=== PATIENT | male | born 1945 | race Caucasian/White ===

== ENCOUNTER 2016-12-31 20:22 | Emergency (ER) | payer MEDICARE ==
[~2016-12-31] VITALS: Ht 180.3 cm; Wt 92.2 kg
[~2016-12-31 20:22] MED LIST: CARV6.25 PO; DIGO250T PO; FURO-153 PO; LISI5TAB PO; SPIR25TA PO; WARF5TAB6 PO
--- OUTSIDE RECORDS SUMMARY | 2016-12-31 20:25 | XMS REPORT | Referral Summary ---
Author Author [facility], Family [facility] Organization [facility] Address Unknown Phone Unavailable Care Team Providers Care Information Systems Supervisor Name Role Phone Mohsen Humphreys Primary Care Physician [phone] Encounter VC Date(s): 07/11/16 - 07/11/16 [facility], [address] [place] [address]- Discharge Diagnosis: Acute CHF (congestive heart failure) Discharge Diagnosis: Atrial thrombus Discharge Diagnosis: Cardiomyopathy Discharge Diagnosis: Atrial fibrillation Discharge Diagnosis: Cardiomegaly Discharge Disposition: -Home or Self Care Attending Physician: Loki Humphreys MD Admitting Physician: Loki Humphreys MD Vital Signs Most recent to 1 oldest [Reference Range]: Temperature Oral 36.5 degC [35.8-37.3 degC] (07/11/16 3:18 PM) Peripheral Pulse 96 bpm Rate [60-100 bpm] (07/11/16 3:18 PM) Blood Pressure 140/100 mmHg [90-140/60-90 mmHg] (07/11/16 3:18 PM) SpO2 95 % (07/11/16 3:18 PM) Problem List Condition Effective Dates Status Health Status Informant Acute CHF Active (congestive heart failure)(Confirmed) Atrial Active fibrillation(Confirm ed) Cardiomegaly(Confirm Active ed) Cardiomyopathy(Confi Active rmed) Diabetes(Confirmed) Active Acute pain of left Active shoulder(Confirmed) Tobacco Active patient user(Confirmed) Allergies, Adverse Reactions, Alerts No Known Medication Allergies Medications Amaryl 2 mg oral tablet See Instructions, 1 TABS ORAL DAILY, # 30 tabs, 5 Refill(s), eRx: [facility] [id number], 1 TABS ORAL DAILY Start Date: 02/01/15 Status: Ordered carvedilol 12.5 mg oral tablet 1 tabs, Oral, BID, # 60 tabs, 0 Refill(s) Start Date: 01/06/15 Status: Ordered digoxin 250 mcg (0.25 mg) oral tablet See Instructions, TAKE 1 TABLET BY MOUTH EVERY DAY, # 30 tabs, 2 Refill(s), eRx : [facility] [facility] , TAKE 1 TABLET BY MOUTH EVERY DAY Start Date: 02/03/15 Status: Ordered Freestyle [place] Lite Lancets Freestyle [place] Lite Lancets, See Instructions, Use to test blood sugar BID DX 250.00, # 100 Each, 0 Refill(s), [email or web address], Use to test blood sugar BID; DX 250.00 Start Date: 01/06/15 Status: Ordered Freestyle [place] Lite Test Strips Freestyle [place] Lite Test Strips, See Instructions, Use to test blood sugar BID DX 250.00, # 100 Each, 11 Refill(s), [email or web address], Use to test blood sugar BID; DX 250.00 Start Date: 01/06/15 Status: Ordered furosemide 40 mg oral tablet See Instructions, TAKE 1 TABLET BY MOUTH EVERY DAY, # 30 tabs, 5 Refill(s), eRx : [facility] , TAKE 1 TABLET BY MOUTH EVERY DAY Start Date: 02/01/15 Status: Ordered lisinopril 5 mg oral tablet See Instructions, TAKE 1 TABLET BY MOUTH EVERY NIGHT AT BEDTIME, # 30 tabs, 2 Refill(s), eRx: [facility] , TAKE 1 TABLET BY MOUTH EVERY NIGHT AT BEDTIME Start Date: 02/03/15 Status: Ordered Mobic 7.5 mg oral tablet 1 tabs, Oral, BID, # 60 tabs, 0 Refill(s), [id number] , 1 tabs Oral BID Start Date: 01/25/15 Status: Ordered spironolactone 25 mg oral tablet See Instructions, TAKE 1 TABLET BY MOUTH EVERY DAY, # 30 tabs, 1 Refill(s), eRx : [facility] [id number], TAKE 1 TABLET BY MOUTH EVERY DAY Start Date: 05/25/15 Status: Ordered warfarin 5 mg oral tablet See Instructions, TAKE 1 TABLET BY MOUTH EVERY DAY WITH SUPPER, # 30 tabs, 2 Refill(s), eRx: [facility] [id number], TAKE 1 TABLET BY MOUTH EVERY DAY WITH SUPPER Start Date: 02/03/15 Status: Ordered Results No data available for this section Immunizations No data available for this section Procedures No data available for this section Social History Social History Type Response Smoking Status Former smoker; Type: Chewing Tobacco Assessment and Plan No data available for this section
--- OUTSIDE RECORDS SUMMARY | 2016-12-31 20:25 | XMS REPORT | Referral Summary ---
Author Author [facility], Family Medicine Organization [facility], Family [facility] Address Unknown Phone Unavailable Care Team Providers Care Expense Clerk Name Role Phone Mohsen Humphreys Primary Care Physician [phone] Encounter VC Date(s): 07/21/16 - 07/21/16 [facility], Family [address] [place] [address]- Discharge Disposition: 01-Home or Self Care Attending Physician: Loki Humphreys MD Admitting Physician: Loki Humphreys MD Vital Signs Most recent to 1 oldest [Reference Range]: Blood Pressure 126/74 mmHg [90-140/60-90 mmHg] (07/21/16 9:48 AM) Problem List Condition Effective Dates Status Health Status Informant Acute CHF Active (congestive heart failure)(Confirmed) Atrial Active fibrillation(Confirm ed) Cardiomegaly(Confirm Active ed) Cardiomyopathy(Confi Active rmed) Diabetes(Confirmed) Active Acute pain of left Active shoulder(Confirmed) Tobacco Active patient user(Confirmed) Allergies, Adverse Reactions, Alerts No Known Medication Allergies Medications digoxin 250 mcg (0.25 mg) oral tablet See Instructions, TAKE 1 TABLET BY MOUTH EVERY DAY, # 30 tabs, 2 Refill(s), eRx : [facility] , TAKE 1 TABLET BY MOUTH EVERY DAY Start Date: 02/03/15 Status: Ordered furosemide 40 mg oral tablet See Instructions, TAKE 1 TABLET BY MOUTH EVERY DAY, # 30 tabs, 5 Refill(s), eRx : [facility] , TAKE 1 TABLET BY MOUTH EVERY DAY Start Date: 02/01/15 Status: Ordered lisinopril 5 mg oral tablet See Instructions, TAKE 1/2 TABLET BY MOUTH EVERY NIGHT AT BEDTIME, # 30 tabs, 2 Refill(s), eRx: [facility] [id number], TAKE 1 TABLET BY MOUTH EVERY NIGHT AT BEDTIME Start Date: 02/03/15 Status: Ordered metFORMIN 500 mg oral tablet 500 mg 1 tabs, Oral, BID, # 60 tabs, 2 Refill(s), Pharmacy: [facility] [id number], 1 tabs Oral BID Start Date: 07/21/16 Status: Ordered One Touch Vario Glucometer Test Strips One Touch Vario Glucometer Test Strips, See Instructions, Use to test blood sugar fasting and 2 hours postprandial of one meal daily. DX: E11.65, # 100 Each, 2 Refill(s), Pharmacy: [facility] [id number], Use to test blood sugar fasting and 2 ho... Start Date: 07/21/16 Status: Ordered One Touch Vario Lancets One Touch Vario Lancets, See Instructions, Use to test blood sugars fasting and 2 hours post prandial of one meal each day. DX: E11.65, # 100 Each, 2 Refill(s ), Pharmacy: [facility] [id number], Use to test blood sugars fasting and 2 hours post... Start Date: 07/21/16 Status: Ordered spironolactone 25 mg oral tablet See Instructions, TAKE 1 TABLET BY MOUTH EVERY DAY, # 30 tabs, 1 Refill(s), eRx : [facility] [id number], TAKE 1 TABLET BY MOUTH EVERY DAY Start Date: 05/25/15 Status: Ordered warfarin 5 mg oral tablet See Instructions, TAKE 1 TABLET BY MOUTH EVERY DAY WITH SUPPER, # 30 tabs, 2 Refill(s), eRx: [facility] [id number], TAKE 1 TABLET BY MOUTH EVERY DAY WITH SUPPER Start Date: 02/03/15 Status: Ordered Results Coagulation Most recent to 1 oldest [Reference Range]: PT Venous (07/21/16 10:55 AM) INR [0.8-1.2] 1.4 1 *HI* (07/21/16 10:55 AM) 1Result Comment: Normal (no anticoagulant): 0.8 - 1.2 Units Routine Therapeutic Range: 2.0 - 3.0 Units High Risk Therapeutic Range: 2.5 - 3.5 Units Immunizations No data available for this section Procedures No data available for this section Social History Social History Type Response Smoking Status Current every day smoker; Type: Chewing Tobacco1 1Chews 2-3 dips a day. Moderate sized dips. Assessment and Plan No data available for this section
--- OUTSIDE RECORDS SUMMARY | 2016-12-31 20:25 | XMS REPORT | Continuity of Care Document ---
Author Author [facility] Organization [facility] Address Unknown Phone Unavailable Allergies Active Description Code Type Severity Reaction Onset Reported/Identified Relationship to Patient Clinical Status Yes No Known Medication Allergies NKMA N/A N/A 01/06/2015 Medications Problems Procedures Results Test Result Range Protime (INR) - 07/21/16 10:55 INR 1.4 NA 0.8-1.2 Prothrombin Time Venous seconds Encounters ACCT No. Visit Date/Time Discharge Status Pt. Type Provider Facility Loc./Unit Complaint [id number] 10/10/2016 15:32:00 2016 23:59:00 DIS Outpatient Loki Humphreys [facility] [id number] 07/21/2016 09:36:00 2015 23:59:00 DIS Outpatient Loki Humphreys [facility] hair folicle check, diabetes check [id number] 07/17/2016 08:39:00 2015 23:59:00 DIS Outpatient Loki Humphreys [facility] Go over meds [id number] 07/11/2016 15:15:00 2015 23:59:00 DIS Outpatient Loki Humphreys [facility] TCPA MED CHECK [id number] 06/14/2015 14:10:00 Document Registration
--- OUTSIDE RECORDS SUMMARY | 2016-12-31 20:25 | XMS REPORT | Referral Summary ---
Author Author [facility], Family Medicine Organization [facility] Address Unknown Phone Unavailable Care Team Providers Care Senior Ruby Developer Name Role Phone Mohsen Humphreys Primary Care Physician [phone] Encounter Date(s): 07/17/16 - 07/17/16 [facility], [address] [place] [address]- Discharge Diagnosis: Cardiomegaly Discharge Diagnosis: Cardiomyopathy Discharge Diagnosis: Acute CHF (congestive heart failure) Discharge Diagnosis: Diabetes Discharge Disposition: 01-Home or Self Care Attending Physician: Loki Humphreys MD Admitting Physician: Loki Humphreys MD Vital Signs Most recent to 1 oldest [Reference Range]: Peripheral Pulse 56 bpm Rate [60-100 bpm] *LOW* (07/17/16 9:00 AM) Blood Pressure 126/80 mmHg [90-140/60-90 mmHg] (07/17/16 9:00 AM) SpO2 93 % (07/17/16 9:00 AM) Problem List Condition Effective Dates Status [...] DAILY, # 30 tabs, 5 Refill(s), eRx: [facility] [id number], 1 TABS ORAL DAILY Start Date: 02/01/15 Status: Ordered carvedilol 12.5 mg oral tablet 1 tabs, Oral, BID, # 60 tabs, 0 Refill(s) Start Date: 01/06/15 Status: Ordered digoxin 250 mcg (0.25 mg) oral tablet See Instructions, TAKE 1 TABLET BY MOUTH EVERY DAY, # 30 tabs, 2 Refill(s), eRx : [facility] , TAKE 1 TABLET BY MOUTH EVERY DAY Start Date: 02/03/15 Status: Ordered Freestyle Cement Lite Lancets Freestyle Cement Lite Lancets, See Instructions, Use to test blood sugar BID DX 250.00, # 100 Each, 0 Refill(s), Pharmacy: [facility], Use to test blood sugar BID; DX 250.00 Start Date: 01/06/15 Status: Ordered Freestyle Cement Lite Test Strips Freestyle Cement Lite Test Strips, See Instructions, Use to test blood sugar BID DX 250.00, # 100 Each, 11 Refill(s), Pharmacy: [facility], Use to test blood sugar BID; DX 250.00 Start Date: 01/06/15 Status: Ordered furosemide 40 mg oral tablet See Instructions, TAKE 1 TABLET BY MOUTH EVERY DAY, # 30 tabs, 5 Refill(s), eRx : [facility] [id number], TAKE 1 TABLET BY MOUTH EVERY DAY Start Date: 02/01/15 Status: Ordered lisinopril 5 mg oral tablet See Instructions, TAKE 1 TABLET BY MOUTH EVERY NIGHT AT BEDTIME, # 30 tabs, 2 Refill(s), eRx: [facility] , TAKE 1 TABLET BY MOUTH EVERY NIGHT AT BEDTIME Start Date: 02/03/15 Status: Ordered Mobic 7.5 mg oral tablet 1 tabs, Oral, BID, # 60 tabs, 0 Refill(s), Pharmacy: [facility] [id number] , 1 tabs Oral BID Start Date: 01/25/15 Status: Ordered spironolactone 25 mg oral tablet See Instructions, TAKE 1 TABLET BY MOUTH EVERY DAY, # 30 tabs, 1 Refill(s), eRx : [facility] , TAKE 1 TABLET BY MOUTH EVERY DAY Start Date: 05/25/15 Status: Ordered warfarin 5 mg oral tablet See Instructions, TAKE 1 TABLET BY MOUTH EVERY DAY WITH SUPPER, # 30 tabs, 2 Refill(s), eRx: [facility] , TAKE 1 TABLET BY MOUTH EVERY DAY WITH SUPPER Start Date: 02/03/15 Status: Ordered Results No data available for this section Immunizations No data available for this section Procedures No data available for this section Social History Social History Type Response Smoking Status Current every day smoker; Type: Chewing Tobacco1 1Chews 2-3 dips a day. Moderate sized dips. Assessment and Plan Extracted from: Title: Ambulatory Patient Education Author: Loki Humphreys MD Date: Cardiovascular Cardiomyopathy Cardiomyopathy is a long-term (chronic) disease of the heart muscle (myocardium) . Over time, the heart becomes abnormally large, thick, or stiff. This makes it harder for the heart to pump blood and can lead to heart failure. There are several types of cardiomyopathy: Dilated cardiomyopathy. This type causes the ventricles become large and weak. Hypertrophic cardiomyopathy. This type causes the heart muscle to thicken. Restrictive cardiomyopathy. This type causes the heart muscle to become rigid and less elastic. Ischemic cardiomyopathy. This type involves narrowing arteries that cause the genao of the heart get thinner. Peripartum cardiomyopathy. This type occurs during or shortly after . CAUSES The cause of cardiomyopathy is often not known. In some cases, it is passed down (inherited) from a family member who also had cardiomyopathy. The disease may develop as a complication of another medical condition. These conditions can include: Diabetes. High blood pressure. Viral infection of the heart. Heart attack. Coronary heart disease. RISK FACTORS You may be more likely to develop cardiomyopathy if you: Have a family history of cardiomyopathy or other heart problems. Are overweight or obese. Use illegal drugs. Abuse alcohol. Have diabetes. Have another disease that can cause cardiomyopathy as a complication. SIGNS AND SYMPTOMS Often, cardiomyopathy has no signs or symptoms. If you do have symptoms, they may include: Shortness of breath, especially during activity. Fatigue. An irregular heartbeat (arrhythmia). Dizziness, light-headedness, or fainting. Chest pain. Swelling in the lower leg or ankle. DIAGNOSIS Your health care provider may suspect cardiomyopathy based on your symptoms and medical history. Your health care provider will also do a physical exam. Other tests done may include: Blood tests. Imaging studies of your heart. These may be done using: X-rays to check if your heart is enlarged. Echocardiogram to show the size of your heart and how well it pumps. MRI. A test to record the electrical activity of your heart ( electrocardiogram or ECG). A test in which you wear a portable device (event monitor) to record your heart's electrical activity while you go about your day. A test to monitor your heart's activity while you exercise (stress test) . A procedure to check the blood pressure and blood flow in your heart( cardiac catheterization). Injection of dye into your arteries before imaging studies are taken ( angiogram). Removal of a sample of heart tissue (biopsy). The sample is examined for problems. TREATMENT Treatment depends on the type of cardiomyopathy you have and the severity of your symptoms. If you are not having any symptoms, you might not need treatment. If you need treatment, it may include: Lifestyle changes. Quit smoking, if you smoke. Maintain a healthy weight. Lose weight if directed by your health care provider. Eat a healthy diet. Include plenty of fruits, vegetables, and whole grains. Get regular exercise. Ask your health care provider to suggest some activities that are good for you. Medicine. You may need to take medicine to: Lower your blood pressure. Slow down your heart rate. Keep your heart beating in a steady rhythm. Clear excess fluids from your body. Prevent blood clots. Surgery. You may need surgery to: Repair a defect. Remove thickened tissue. Implant a device to treat serious heart rhythm problems (implantable cardioverter-defibrillator or ICD). Replace your heart (heart transplant) if all other treatments have failed (end stage). HOME CARE INSTRUCTIONS Take medicines only as directed by your health care provider. Eat a heart-healthy diet. Work with your health care provider or a registered dietitian to learn about healthy eating options. Maintain a healthy weight and stay physically active. Do not use any tobacco products, including cigarettes, chewing tobacco, or electronic cigarettes. If you need help quitting, ask your health care provider. Work closely with your health care provider to manage chronic conditions , such as diabetes and high blood pressure. Limit alcohol intake to no more than one drink per day for non women and no more than two drinks per day for men. One drink equals 12 ounces of beer, 5 ounces of wine, or 1 ounces of hard liquor. Try to get at least 7 hours of sleep each night. Find ways to manage stress. Keep all follow-up visits as directed by your health care provider. This is important. SEEK MEDICAL CARE IF: Your symptoms get worse, even after treatment. You have new symptoms. SEEK IMMEDIATE MEDICAL CARE IF: You have severe chest pain. You have shortness of breath. You cough up pink, bubbly material. You have sudden sweating. You feel nauseous and vomit. You suddenly become light-headed or dizzy. You feel your heart beating very fast. It feels like your heart is skipping beats. These symptoms may represent a serious problem that is an emergency. Do not wait to see if the symptoms will go away. Get medical help right away. Call your local emergency services (911 in the [place] Do not drive yourself to the hospital. This information is not intended to replace advice given to you by your health care provider. Make sure you discuss any questions you have with your health care provider. Document Released: 11/23/2005 Document Revised: 10/01/2015 Document Reviewed: [employer] Patient Education 2016 [employer]. Obstetrics and Gynecology Diabetes and Sick Day Management Blood sugar (glucose) can be more difficult to control when you are sick. Colds , fever, flu, nausea, vomiting, and diarrhea are all examples of common illnesses that can cause problems for people with diabetes. Loss of body fluids (dehydration) from fever, vomiting, diarrhea, infection, and the stress of a sickness can all cause blood glucose levels to increase. Because of this, it is very important to take your diabetes medicines and to eat some form of carbohydrate food when you are sick. Liquid or soft foods are often tolerated, and they help to replace fluids. HOME CARE INSTRUCTIONS These main guidelines are intended for managing a short-term (24 hours or less) sickness: Take your usual dose of insulin or oral diabetes medicine. An exception would be if you take any form of metformin. If you cannot eat or drink, you can become dehydrated and should not take this medicine. Continue to take your insulin even if you are unable to eat solid foods or are vomiting. Your insulin dose may stay the same, or it may need to be increased when you are sick. You will need to test your blood glucose more often, generally every 2 4 hours. If you have type 1 diabetes, test your urine for ketones every 4 hours. If you have type 2 diabetes, test your urine for ketones as directed by your health care provider. Eat some form of food that contains carbohydrates. The carbohydrates can be in solid or liquid form. You should eat 4550 g of carbohydrates every 3 4 hours. Replace fluids if you have a fever, vomit, or have diarrhea. Ask your health care provider for specific rehydration instructions. Watch carefully for the signs of ketoacidosis if you have type 1 diabetes. Call your health care provider if any of the following symptoms are present, especially in children: Moderate to large ketones in the urine along with a high blood glucose level. Severe nausea. Vomiting. Diarrhea. Abdominal pain. Rapid breathing. Drink extra liquids that do not contain sugar such as water. Be careful with [id number] medicines. Read the labels. They may contain sugar or types of sugars that can increase your blood glucose level. Food Choices for Illness All of the food choices below contain about 15 g of carbohydrates. Plan ahead and keep some of these foods around. to cup carbonated beverage containing sugar. Carbonated beverages will usually be better tolerated if they are opened and left at room temperature for a few minutes. of a twin frozen ice pop. cup regular gelatin. cup juice. cup ice cream or frozen yogurt. cup cooked cereal. cup sherbet. 1 cup clear broth or soup. 1 cup cream soup. cup regular custard. cup regular pudding. 1 cup sports drink. 1 cup plain yogurt. 1 slice toast. 6 squares saltine crackers. 5 vanilla wafers. SEEK MEDICAL CARE IF: You are unable to drink fluids, even small amounts. You have nausea and vomiting for more than 6 hours. You have diarrhea for more than 6 hours. Your blood glucose level is more than 240 mg/dL, even with additional insulin. There is a change in mental status. You develop an additional serious sickness. You have been sick for 2 days and are not getting better. You have a fever. SEEK IMMEDIATE MEDICAL CARE IF: You have difficulty breathing. You have moderate to large ketone levels. MAKE SURE YOU: Understand these instructions. Will watch your condition. Will get help right away if you are not doing well or get worse. This information is not intended to replace advice given to you by your health care provider. Make sure you discuss any questions you have with your health care provider. Document Released: 09/12/2004 Document Revised: 10/01/2015 Document Reviewed: [employer] Interactive Patient Education 2016 [employer] No follow up information was provided. Extracted from: Title: Office Visit Note Author: Loki Humphreys MD Date: 07/17/16 Assessment/Plan 1.Acute CHF (congestive heart failure) Chest X-ray reviewed noting a large heart and no evidence of heart failure. Ordered: Office Visit Level 3 Est 08705 2.Cardiomegaly The heart is enlarged. Ordered: Office Visit Level 3 Est 32223 3.Cardiomyopathy EF of 20-25%. Will refer patient back to Dr. Dooley. Ordered: Office Visit Level 3 Est 20074 4.Diabetes Keep monitor the sugars. Will get lab. Ordered: Hemoglobin A1c Office Visit Level 3 Est 51512
--- OUTSIDE RECORDS SUMMARY | 2016-12-31 20:25 | XMS REPORT | Referral Summary ---
Author Author [facility], Family Medicine Organization [facility] Address Unknown Phone Unavailable Care Team Providers Care Supervisor Malted Milk Name Role Phone Mohsen Humphreys Primary Care Physician [phone] Encounter Date(s): 10/10/16 - 10/10/16 [facility], [address] [place] [address]- Discharge Diagnosis: Cardiomyopathy Discharge Diagnosis: Diabetes Discharge Diagnosis: Cardiomegaly Discharge Diagnosis: Atrial fibrillation Discharge Diagnosis: Encounter for prostate cancer screening Discharge Disposition: 01-Home or Self Care Attending Physician: Loki Humphreys MD Admitting Physician: Loki Humphreys MD Vital Signs Most recent to 1 oldest [Reference Range]: Blood Pressure 138/84 mmHg [90-140/60-90 mmHg] (10/10/16 3:41 PM) Problem List Condition Effective Dates Status Health Status Informant Acute CHF Active (congestive heart failure)(Confirmed) Atrial Active fibrillation(Confirm ed) Cardiomegaly(Confirm Active ed) Cardiomyopathy(Confi Active rmed) Diabetes(Confirmed) Active Acute pain of left Active shoulder(Confirmed) Tobacco Active patient user(Confirmed) Allergies, Adverse Reactions, Alerts No Known Medication Allergies Medications Coreg 25 mg oral tablet 25 mg 1 tabs, Oral, BID, # 180 tabs, 0 Refill(s) Start Date: 10/10/16 Status: Ordered digoxin 125 mcg (0.125 mg) oral tablet 125 mcg 1 tabs, Oral, Daily, # 90 tabs, 0 Refill(s) Start Date: 10/10/16 Status: Ordered furosemide 40 mg oral tablet See Instructions, TAKE 1 TABLET BY MOUTH EVERY DAY, # 30 tabs, 5 Refill(s), eRx : [facility], TAKE 1 TABLET BY MOUTH EVERY DAY Start Date: 02/01/15 Status: Ordered lisinopril 5 mg oral tablet See Instructions, TAKE 1/2 TABLET BY MOUTH EVERY NIGHT AT BEDTIME, # 30 tabs, 2 Refill(s), eRx: [facility] 11303, TAKE 1 TABLET BY MOUTH EVERY NIGHT AT BEDTIME Start Date: 02/03/15 Status: Ordered metFORMIN 500 mg oral tablet 500 mg 1 tabs, Oral, BID, # 60 tabs, 2 Refill(s), Pharmacy: [facility] [id number], 1 tabs Oral BID Start Date: 07/21/16 Status: Ordered One Touch [place]ario Glucometer Test Strips One Touch [place]ario Glucometer Test Strips, See Instructions, Use to test blood sugar fasting and 2 hours postprandial of one meal daily. DX: E11.65, # 100 Each, 2 Refill(s), Pharmacy: [facility] [id number], Use to test blood sugar fasting and 2 ho... Start Date: 07/21/16 Status: Ordered One Touch [place]ario Lancets One Touch Vario Lancets, See Instructions, Use to test blood sugars fasting and 2 hours post prandial of one meal each day. DX: E11.65, # 100 Each, 2 Refill(s ), Pharmacy: [facility] [id number], Use to test blood sugars fasting and 2 hours post... Start Date: 07/21/16 Status: Ordered spironolactone 25 mg oral tablet See Instructions, TAKE 1 TABLET BY MOUTH EVERY DAY, # 30 tabs, 1 Refill(s), eRx : [facility] 60178, TAKE 1 TABLET BY MOUTH EVERY DAY Start Date: 05/25/15 Status: Ordered warfarin 5 mg oral tablet See Instructions, TAKE 1 TABLET BY MOUTH EVERY DAY, # 30 tabs, eRx: [facility] 75602 Start Date: 10/09/16 Status: Ordered Results Coagulation Most recent to 1 oldest [Reference Range]: PT Venous (10/10/16 4:32 PM) INR [0.8-1.2] 2.1 1 *HI* (10/10/16 4:32 PM) 1Result Comment: Normal (no anticoagulant): 0.8 - 1.2 Units Routine Therapeutic Range: 2.0 - 3.0 Units High Risk Therapeutic Range: 2.5 - 3.5 Units Chemistry Most recent to 1 oldest [Reference Range]: Sodium Lvl [135-144 137 mEq/L mEq/L] (10/10/16 4:32 PM) Potassium Lvl 5.0 mEq/L [3.5-5.2 mEq/L] (10/10/16 4:32 PM) Chloride [99-111 105 mEq/L mEq/L] (10/10/16 4:32 PM) CO2 [23-31 mEq/L] 25 mEq/L (10/10/16 4:32 PM) AGAP [3-20] 7 (10/10/16 4:32 PM) BUN [8-26 mg/dL] 18 mg/dL (10/10/16 4:32 PM) Glucose Lvl [70-99 236 mg/dL mg/dL] *HI* (10/10/16 4:32 PM) Creatinine Lvl 0.99 mg/dL [0.72-1.25 mg/dL] (10/10/16 4:32 PM) eGFR [>60 mL/min] >60 mL/min 1 (10/10/16 4:32 PM) Calcium Lvl 9.6 mg/dL [8.9-10.5 mg/dL] (10/10/16 4:32 PM) PSA (wihout Reflex 0.3 ng/mL 2 Free) [0.0-4.5 (10/10/16 4:32 PM) ng/mL] Chol [0-199 mg/dL] 194 mg/dL (10/10/16 4:32 PM) Trig [0-149 mg/dL] 117 mg/dL (10/10/16 4:32 PM) HDL [40-84 mg/dL] 59 mg/dL (10/10/16 4:32 PM) LDL [0-130 mg/dL] 112 mg/dL (10/10/16 4:32 PM) VLDL Cholesterol 23 mg/dL [0-28 mg/dL] (10/10/16 4:32 PM) Cardiac Risk 3.3 [0.0-5.7] (10/10/16 4:32 PM) Hgb A1c [4.1-5.6 %] 8.3 % *HI* (10/10/16 4:32 PM) eAvg Glucose 191.5 mg/dL (10/10/16 4:32 PM) 1Result Comment: Multiply eGFR results by 1.21 for race. 2Result Comment: AUA PSA Best Practice Guidelines: Age-Adjusted PSA Values by Ethnic Group Age Range Asians - Caucasians Americans 40-49 0-2.0 0-2.0 0-2.5 50-59 0-3.0 0-4.0 0-3.5 60-69 0-4.0 0-4.5 0-4.5 70-79 0-5.0 0-5.5 0-6.5 Immunizations Given and Recorded Vaccine Date Status Refusal Reason pneumococcal 13-valent conjugate vaccine1 10/10/16 Given 1Result Comment: [10/10/2016 Uncharted] Incorrect chart Procedures Procedure Date Related Diagnosis Body Site Previous back surgery 1991 Appendectomy 1960 Social History Social History Type Response Smoking [...] Released: 11/23/2005 Document Revised: 10/01/2015 Document Reviewed: [employer] Patient Education 2016 [employer] Atrial Fibrillation Atrial fibrillation is a condition that causes your heart to beat irregularly. It may also cause your heart to beat faster than normal. Atrial fibrillation can prevent your heart from pumping blood normally. It increases your risk of stroke and heart problems. HOME CARE Take medications as told by your doctor. Only take medications that your doctor says are safe. Some medications can make the condition worse or happen again. If blood thinners were prescribed by your doctor, take them exactly as told. Too much can cause bleeding. Too little and you will not have the needed protection against stroke and other problems. Perform blood tests at home if told by your doctor. Perform blood tests exactly as told by your doctor. Do not drink alcohol. Do not drink beverages with caffeine such as coffee, soda, and some teas. Maintain a healthy weight. Do not use diet pills unless your doctor says they are safe. They may make heart problems worse. Follow diet instructions as told by your doctor. Exercise regularly as told by your doctor. Keep all follow-up appointments. GET HELP IF: You notice a change in the speed, rhythm, or strength of your heartbeat. You suddenly begin peeing (urinating) more often. You get tired more easily when moving or exercising. GET HELP RIGHT AWAY IF: You have chest or belly (abdominal) pain. You feel sick to your stomach (nauseous). You are short of breath. You suddenly have swollen feet and ankles. You feel dizzy. You face, arms, or legs feel numb or weak. There is a change in your vision or speech. MAKE SURE YOU: Understand these instructions. Will watch your condition. Will get help right away if you are not doing well or get worse. This information is not intended to replace advice given to you by your health care provider. Make sure you discuss any questions you have with your health care provider. Document Released: 06/19/2009 Document Revised: 10/01/2015 Document Reviewed: [employer] Patient Education 2016 [employer]. Preventive Medicine Diabetes and Foot Care Diabetes may cause you to have problems because of poor blood supply ( circulation) to your feet and legs. This may cause the skin on your feet to become thinner, break easier, and heal more slowly. Your skin may become dry, and the skin may peel and crack. You may also have nerve damage in your legs and feet causing decreased feeling in them. You may not notice minor injuries to your feet that could lead to infections or more serious problems. Taking care of your feet is one of the most important things you can do for yourself. HOME CARE INSTRUCTIONS Wear shoes at all times, even in the house. Do not go barefoot. Bare feet are easily injured. Check your feet daily for blisters, cuts, and redness. If you cannot see the bottom of your feet, use a mirror or ask someone for help. Wash your feet with warm water (do not use hot water) and mild soap. Then pat your feet and the areas between your toes until they are completely dry. Do not soak your feet as this can dry your skin. Apply a moisturizing lotion or petroleum jelly (that does not contain alcohol and is unscented) to the skin on your feet and to dry, brittle toenails. Do not apply lotion between your toes. Trim your toenails straight across. Do not dig under them or around the cuticle. File the edges of your nails with an emery board or nail file. Do not cut corns or calluses or try to remove them with medicine. Wear clean socks or stockings every day. Make sure they are not too tight. Do not wear knee-high stockings since they may decrease blood flow to your legs. Wear shoes that fit properly and have enough cushioning. To break in new shoes, wear them for just a few hours a day. This prevents you from injuring your feet. Always look in your shoes before you put them on to be sure there are no objects inside. Do not cross your legs. This may decrease the blood flow to your feet. If you find a minor scrape, cut, or break in the skin on your feet, keep it and the skin around it clean and dry. These areas may be cleansed with mild soap and water. Do not cleanse the area with peroxide, alcohol, or iodine. When you remove an adhesive bandage, be sure not to damage the skin around it. If you have a wound, look at it several times a day to make sure it is healing. Do not use heating pads or hot water bottles. They may burn your skin. If you have lost feeling in your feet or legs, you may not know it is happening until it is too late. Make sure your health care provider performs a complete foot exam at least annually or more often if you have foot problems. Report any cuts, sores, or bruises to your health care provider immediately. SEEK MEDICAL CARE IF: You have an injury that is not healing. You have cuts or breaks in the skin. You have an ingrown nail. You notice redness on your legs or feet. You feel burning or tingling in your legs or feet. You have pain or cramps in your legs and feet. Your legs or feet are numb. Your feet always feel cold. SEEK IMMEDIATE MEDICAL CARE IF: There is increasing redness, swelling, or pain in or around a wound. There is a red line that goes up your leg. Pus is coming from a wound. You develop a fever or as directed by your health care provider. You notice a bad smell coming from an ulcer or wound. This information is not intended to replace advice given to you by your health care provider. Make sure you discuss any questions you have with your health care provider. Document Released: 09/07/2001 Document Revised: 05/13/2014 Document Reviewed: [employer] Patient Education 2016 [employer] No follow up information was provided. Extracted from: Title: Office Visit Note Author: Loki Humphreys MD Date: 10/10/16 Assessment/Plan Atrial fibrillation Continue with the Coumadin and will get a PT today. Ordered: PT Cardiomegaly Continue with the follow up with Dr. Dooley. Ordered: Basic Metabolic Panel Cardiomyopathy As above and he will be getting a ECHO soon. Ordered: Basic Metabolic Panel Lipid Panel Diabetes Lab today and continue with the current medication. Follow up in 3 months. Ordered: Hemoglobin A1c Lipid Panel Encounter for prostate cancer screening Lab for PSA. Ordered: Prostate Specific Antigen
--- OUTSIDE RECORDS SUMMARY | 2016-12-31 20:25 | XMS REPORT | Referral Summary ---
Author Author [facility], Family Medicine Organization [facility], Family [facility] Address Unknown Phone Unavailable Care Team Providers Care Surveillance Manager Name Role Phone Mohsen Humphreys Primary Care Physician [phone] Encounter VC Date(s): 01/25/15 - 01/25/15 [facility], Family [address] [place] [address]- Discharge Diagnosis: Pain of left clavicle Discharge Disposition: 01-Home or Self Care Attending Physician: Loki Humphreys MD Admitting Physician: Loki Humphreys MD Vital Signs Most recent to 1 oldest [Reference Range]: Peripheral Pulse 76 bpm Rate [60-100 bpm] (01/25/15 1:10 PM) Blood Pressure 136/84 mmHg [90-140/60-90 mmHg] (01/25/15 1:10 PM) Problem List Condition Effective Dates Status Health Status Informant Acute CHF Active (congestive heart failure)(Confirmed) Cardiomegaly(Confirm Active ed) Cardiomyopathy(Confi Active rmed) Diabetes(Confirmed) Active Acute pain of left Active shoulder(Confirmed) Tobacco Active patient user(Confirmed) Allergies, Adverse Reactions, Alerts No Known Medication Allergies Medications Amaryl 2 mg oral tablet See Instructions, 1 TABS ORAL DAILY, # 30 tabs, 5 Refill(s), eRx: [facility] 94568, 1 TABS ORAL DAILY Start Date: 02/01/15 Status: Ordered carvedilol 12.5 mg oral tablet 1 tabs, Oral, BID, # 60 tabs, 0 Refill(s) Start Date: 01/06/15 Status: Ordered digoxin 250 mcg (0.25 mg) oral tablet See Instructions, TAKE 1 TABLET BY MOUTH EVERY DAY, # 30 tabs, 2 Refill(s), eRx : [facility] 70000, TAKE 1 TABLET BY MOUTH EVERY DAY Start Date: 02/03/15 Status: Ordered Freestyle [place] Lite Lancets Freestyle [place] Lite Lancets, See Instructions, Use to test blood sugar BID DX 250.00, # 100 Each, 0 Refill(s), [id number], Use to test blood sugar BID; DX 250.00 Start Date: 01/06/15 Status: Ordered Freestyle [place] Lite Test Strips Freestyle [place] Lite Test Strips, See Instructions, Use to test blood sugar BID DX 250.00, # 100 Each, 11 Refill(s), [facility], Use to test blood sugar BID; DX 250.00 Start Date: 01/06/15 Status: Ordered furosemide 40 mg oral tablet See Instructions, TAKE 1 TABLET BY MOUTH EVERY DAY, # 30 tabs, 5 Refill(s), eRx : [facility] 97[facility], TAKE 1 TABLET BY MOUTH EVERY DAY Start Date: 02/01/15 Status: Ordered lisinopril 5 mg oral tablet See Instructions, TAKE 1 TABLET BY MOUTH EVERY NIGHT AT BEDTIME, # 30 tabs, 2 Refill(s), eRx: [facility] 93058, TAKE 1 TABLET BY MOUTH EVERY NIGHT AT BEDTIME Start Date: 02/03/15 Status: Ordered Mobic 7.5 mg oral tablet 1 tabs, Oral, BID, # 60 tabs, 0 Refill(s), [facility] , 1 tabs Oral BID Start Date: 01/25/15 Status: Ordered spironolactone 25 mg oral tablet See Instructions, TAKE 1 TABLET BY MOUTH EVERY DAY, # 30 tabs, 1 Refill(s), eRx : [facility] 05111, TAKE 1 TABLET BY MOUTH EVERY DAY Start Date: 05/25/15 Status: Ordered warfarin 5 mg oral tablet See Instructions, TAKE 1 TABLET BY MOUTH EVERY DAY WITH SUPPER, # 30 tabs, 2 Refill(s), eRx: [facility] 90007, TAKE 1 TABLET BY MOUTH EVERY DAY WITH SUPPER Start Date: 02/03/15 Status: Ordered Results No data available for this section Immunizations No data available for this section Procedures No data available for this section Social History Social History Type Response Smoking Status Former smoker; Type: Chewing Tobacco Assessment and Plan Extracted from: Title: Ambulatory Patient Education Author: Loki Humphreys MD Date: 01/25 Family Medicine Arthralgia Arthralgia is joint pain. A joint is a place where two bones meet. Joint pain can happen for many reasons. The joint can be bruised, stiff, infected, or weak from aging. Pain usually goes away after resting and taking medicine for soreness. HOME CARE Rest the joint as told by your doctor. Keep the sore joint raised (elevated ) for the first 24 hours. Put ice on the joint area. Put ice in a plastic bag. Place a towel between your skin and the bag. Leave the ice on for 15-20 minutes, 03-04 times a day. Wear your splint, casting, elastic bandage, or sling as told by your doctor. Only take medicine as told by your doctor. Do not take aspirin. Use crutches as told by your doctor. Do not put weight on the joint until told to by your doctor. GET HELP RIGHT AWAY IF: You have bruising, puffiness (swelling ), or more pain. Your fingers or toes turn blue or start to lose feeling (numb ). Your medicine does not lessen the pain. Your pain becomes severe. You have a temperature by mouth above 102 F (38.9 C), not controlled by medicine. You cannot move or use the joint. MAKE SURE YOU: Understand these instructions. Will watch your condition. Will get help right away if you are not doing well or get worse. Document Released: 08/29/2010 Document Revised: 12/02/2012 Document Reviewed: [facility] Patient Information 2014 [employer]. No follow up information was provided. Extracted from: Title: Office Visit Note Author: Loki Humphreys MD Date: 01/25/15 Assessment/Plan Acute pain of left shoulder Sling for 1 week. Rx for Mobic and [place] 5mg. Follow up as needed. Ordered: Office Visit Level 4 Est 88462 Pain of left clavicle Ordered: Office Visit Level 4 Est 68127 Orders: digoxin, See Instructions, TAKE 1 TABLET BY MOUTH EVERY 3rd DAY, # 30 tabs, BREON[facility], eRx: [facility] 65100, TAKE 1 TABLET BY MOUTH EVERY DAY HYDROcodone-acetaminophen, 1 tabs, Oral, q6hr, One to two tab at bedtime., # 30 tabs, 0 Refill(s) meloxicam, 1 tabs, Oral, BID, # 60 tabs, 0 Refill(s), Pharmacy: [facility] [id number], 1 tabs Oral BID
--- OUTSIDE RECORDS SUMMARY | 2016-12-31 20:26 | XMS REPORT | Referral Summary ---
Author Organization Unknown Address Unknown Phone Unavailable Care Team Providers Care Cloth Winder Name Role Phone Mohsen Humphreys Primary Care Physician [phone] Encounter VC Date(s): 01/06/15 - 01/06/15 [facility], Ronald, Family [address] [place] [address] Discharge Disposition: Home or Self Care Attending Physician: Loki Humphreys MD Admitting Physician: Loki Humphreys MD Vital Signs Most recent to 1 oldest [Reference Range]: Peripheral Pulse 80 bpm Rate [60-100 bpm] (01/06/15 4:30 PM) Blood Pressure 120/76 mmHg [90-140/60-90 mmHg] (01/06/15 4:30 PM) Problem List Condition Effective Dates Status Health Status Informant Acute CHF Active (congestive heart failure)(Confirmed) Cardiomegaly(Confirm Active ed) Cardiomyopathy(Confi Active rmed) Tobacco Active patient user(Confirmed) Allergies, Adverse Reactions, Alerts No Known Medication Allergies Medications Amaryl 2 mg oral tablet 1 tabs, Oral, Daily, # 30 tabs, 0 Refill(s), Pharmacy: [facility] [address]31, 1 tabs Oral Daily Start Date: 01/06/15 Status: Ordered carvedilol 12.5 mg oral tablet 1 tabs, Oral, BID, # 60 tabs, 0 Refill(s) Start Date: 01/06/15 Status: Ordered digoxin 250 mcg (0.25 mg) oral tablet See Instructions, TAKE 1 TABLET BY MOUTH EVERY DAY, # 30 tabs, BREONNA, eRx: [facility] 92115, TAKE 1 TABLET BY MOUTH EVERY DAY Special Instructions: TAKE 1 TABLET BY MOUTH EVERY DAY Start Date: 01/04/15 Status: Ordered Freestyle [place] Lite Lancets Freestyle [place] Lite Lancets, See Instructions, Use to test blood sugar BID DX 250.00, # 100 Each, 0 Refill(s), Pharmacy: [facility] [id number], Use to test blood sugar BID; DX 250.00 Special Instructions: Use to test blood sugar BID DX 250.00 Start Date: 01/06/15 Status: Ordered Freestyle [place] Lite Test Strips Freestyle [place] Lite Test Strips, See Instructions, Use to test blood sugar BID DX 250.00, # 100 Each, 11 Refill(s), Pharmacy: [facility], Use to test blood sugar BID; DX 250.00 Special Instructions: Use to test blood sugar BID DX 250.00 Start Date: 01/06/15 Status: Ordered furosemide 40 mg oral tablet See Instructions, TAKE 1 TABLET BY MOUTH EVERY DAY, # 30 tabs, BREONNA, eRx: [facility] , TAKE 1 TABLET BY MOUTH EVERY DAY Special Instructions: TAKE 1 TABLET BY MOUTH EVERY DAY Start Date: 01/04/15 Status: Ordered lisinopril 5 mg oral tablet See Instructions, TAKE 1 TABLET BY MOUTH EVERY NIGHT AT BEDTIME, # 30 tabs, BREONNA , eRx: [facility] , TAKE 1 TABLET BY MOUTH EVERY NIGHT AT BEDTIME Special Instructions: TAKE 1 TABLET BY MOUTH EVERY NIGHT AT BEDTIME Start Date: 01/04/15 Status: Ordered spironolactone 25 mg oral tablet See Instructions, TAKE 1 TABLET BY MOUTH EVERY DAY, # 30 tabs, BREON[place], eRx: [facility] , TAKE 1 TABLET BY MOUTH EVERY DAY Special Instructions: TAKE 1 TABLET BY MOUTH EVERY DAY Start Date: 01/04/15 Status: Ordered warfarin 5 mg oral tablet See Instructions, TAKE 1 TABLET BY MOUTH EVERY DAY WITH SUPPER, # 30 tabs, BREONNA, eRx: [facility] , TAKE 1 TABLET BY MOUTH EVERY DAY WITH SUPPER Special Instructions: TAKE 1 TABLET BY MOUTH EVERY DAY WITH SUPPER Start Date: 01/04/15 Status: Ordered Results No data available for this section Immunizations No data available for this section Procedures No data available for this section Social History Social History Type Response Smoking Status Former smoker; Type: Chewing Tobacco Assessment and Plan No data available for this section
--- OUTSIDE RECORDS SUMMARY | 2016-12-31 20:26 | XMS REPORT | Continuity of Care Document ---
Author Author [facility] Organization [facility] Address Unknown Phone Unavailable Care Team Providers Care Drier Unloader Name Role Phone JESÚS HAYNES II, MD Primary Care Physician [phone] Insurance Providers Payer Name Policy Number Subscriber Name Relationship Medicare[place]up[place]ina [place] [facility] [id number] Tomy Hilario 20 Self Advance Directives Directive Response Recorded Date/Time Ordered Resuscitation Status Full Code 12/05/14 4:54am Resuscitation Documents on File No 12/05/14 6:18am Chief Complaint and Reason for Visit Chief Complaint ATRIAL FIB AND CHF Reason for Visit Atrial fibrillation with RVR Exertional dyspnea Edema Atrial fibrillation with RVR Acute systolic heart failure Cardiomyopathy Atrial thrombus Acute bronchitis Tobacco dependence Obesity (BMI 30.0-34.9) Problems Medical Problems Problem Onset Date Status Atrial fibrillation with RVR Unknown Active Exertional dyspnea Unknown Active Edema Unknown Active Atrial fibrillation with RVR Unknown Active Acute systolic heart failure Unknown Active Cardiomyopathy Unknown Active Atrial thrombus Unknown Active Acute bronchitis Unknown Active Tobacco dependence Unknown Active Obesity (BMI 30.0-34.9) Unknown Active Medications Medication Dose Route Sig Days/Qty Instructions Order Date Discontinued Date Status [None] 04/23/10 12/10/14 Discontinued Carvedilol 6.25 Mg PO TWICE DAILY WITH MEALS For CHF 60 Qty 12/10/14 Active Digoxin 250 Mcg PO DAILY For A fib 30 Qty 12/10/14 Active Furosemide 40 Mg PO DAILY For CHF 30 Qty 12/10/14 Active Lisinopril 5 Mg PO BEDTIME For CHF 30 Qty 12/10/14 Active Spironolactone 25 Mg PO DAILY For CHF 30 Qty 12/10/14 Active Warfarin Sodium 10 Mg PO 1700 For afib 30 Qty Take 2 (5 mg) tablets, by mouth, 1 time a day (at 5 pm). 12/10/14 Active Social History Social History Problem Response Recorded Date/Time Chewing Tobacco Status Y CURRENTLY 12/05/2014 4:06am Hx Substance Use No 12/05/2014 4:06am Hx Alcohol Use No 12/05/2014 4:06am Has the pt used tobacco in the last 12 months Yes 12/05/2014 6:19am Tobacco Usage chew 12/05/2014 3:49am Query Response Start Date Stop Date Smoking Status Former smoker Hospital Discharge Instructions Instructions: Care Instructions: Reason for Hospitalization: Acute systolic heart failure I was in the hospital because (patient own words): "short of breath and legs swelling and stomach." Discharge Diet: Heart healthy diet; Less than 2 grams sodium, up to 2 quarts fluid/day Discharge Activity: As per cardiology Follow Up Appointments: INR at Dr Feliciano's Office on Sunday12/14/14 Dr Humphreys in 1 week 12/18/2014 @ 1:45 Dr Dooley in 2 weeks 12/28/2014 @2:15 Condition at time of discharge: Good Good Nutrition: Breastfeed ad rachana Discharge Activity: See [facility] discharge instructions. Follow Up Appointments: Will need Neobili checked and Wt checked tomorrow morning 12/10. [address] Webb Notify Physician If: See Discharge instructions. Weight Pounds: 7 (lbs) Weight Ounces: 8.11 (oz) Dismissal Weight: 3.195 Bilirubin Level: 7.1 Plan of Care Discharge Date 12/10/14 4:10pm Disposition 01 DISCHARGED HOME, SELF-CARE Instructions/Education Provided [place]C Congestive Heart [place] [facility] Trans Rad Pneumococcal Vaccine DI for Warfarin Therapy Prescriptions See Medications Section Functional Status Query Response Date Recorded Physical Hygiene Self December 10, 2014 3:18pm Disabilities Visual December 10, 2014 3:18pm Devices Used Glasses December 10, 2014 3:18pm Dressing Self December 10, 2014 3:18pm Ambulation Self December 10, 2014 3:18pm Diet Self December 10, 2014 3:18pm Mental Status Alert Oriented December 10, 2014 3:18pm Disabilities Visual December 10, 2014 3:18pm Devices Used Glasses December 10, 2014 3:18pm Physical Hygiene Self December 10, 2014 3:18pm Dressing Self December 10, 2014 3:18pm Ambulation Self December 10, 2014 3:18pm Diet Self December 10, 2014 3:18pm Allergies, Adverse Reactions, Alerts Allergen Type Severity Reaction Status Last Updated No Known Drug Allergies Adverse Reaction Unknown Active 12/05/14 Immunizations Name Given Type Hx Influenza Vaccination No Historical Hx Pneumococcal Vaccination No Historical Hx Tetanus, Diptheria, Pertussis Y UNKNOWN Historical Hx Influenza Vaccination No Historical Hx Tetanus Diptheria No Historical Hx Tetanus, Diptheria, Pertussis Y UNKNOWN Historical Hx Tetanus Toxoid Vaccination No Historical pneumococcal polysaccharide PPV23 12/05/14 Administered Pneumococcal conjugate PCV 13 12/06/14 Administered pneumococcal polysaccharide PPV23 12/05/14 Administered Pneumococcal conjugate PCV 13 12/06/14 Administered pneumococcal polysaccharide PPV23 12/05/14 Administered Pneumococcal conjugate PCV 13 12/06/14 Administered Vital Signs Acute Vital Signs Vital Response Date/Time Temperature (Fahrenheit) 96.5 deg F (96.8 - 99.1) Temperature (Calculated Celsius) 35.65086 degrees C (36.0 - 37.3) Pulse Rate (adult) 75 bpm (60 - 100) Respiratory Rate 18 breaths/min (10 - 20) O2 Sat by Pulse Oximetry 96 % (90 - 100) Oxygen Delivery Method Room Air Blood Pressure 104/71 mm Hg Blood Pressure Source Automatic Cuff Height 5 ft 11 in Weight 216 lb Body Mass Index 30.0 kg/m^2 Results Test Source Date Result Interp. Ref. Range Comments Digoxin Level December 10, 2014 4:44am 0.8 NG/ML N 0.8-2.0 Activated Partial Thromboplast Time December 05, 2014 3:42am 30.6 SEC N 24- 36 Alanine Aminotransferase (ALT/SGPT) December 10, 2014 4:44am 64 U/L N 21- 72 Albumin December 10, 2014 4:44am 3.4 G/DL L 3.5-5.0 Albumin/Globulin Ratio December 10, 2014 4:44am 0.9 RATIO L 1.1-2.2 Alkaline Phosphatase December 10, 2014 4:44am 95 U/L N 38-126 Anion Gap December 10, 2014 4:44am 6 MEQ/L N 5-15 Arterial Blood Base Excess December 08, 2014 1:13pm 5.0 MMOL/L H -2.0-2.0 Arterial Blood HCO3 December 08, 2014 1:13pm 5 MEQ/L L 22-26 Arterial Blood Oxygen Saturation December 08, 2014 1:13pm 93.0 % L 95.0- 98.0 Arterial Blood Partial Pressure CO2 December 08, 2014 1:13pm 52 MMHG H 34- 45 Arterial Blood Total CO2 December 08, 2014 1:13pm 33 MEQ/L H 23-27 Arterial Blood pH December 08, 2014 1:13pm 7.391 N 7.350-7.450 Arterial Blood pO2 at Patient Temp December 08, 2014 1:13pm 67 MMHG L 80- 100 Aspartate Amino Transf (AST/SGOT) December 10, 2014 4:44am 60 U/L H 17-59 BUN/Creatinine Ratio December 10, 2014 4:44am 16 RATIO N 6-26 Basophils # (Auto) December 10, 2014 4:44am 0.0 T/MM3 N 0-0.2 Basophils (%) (Auto) December 10, 2014 4:44am 0.4 % N 0-2 Blood Gas Oxygen Liter Flow December 08, 2014 1:13pm - Blood Gas Oxygen Percent Given December 08, 2014 1:13pm - Blood Gas Specimen Type December 08, 2014 1:13pm Pulmonary artery - Blood Gas Tidal Volume December 08, 2014 1:13pm 0-1200 Blood Gas Vent Rate December 08, 2014 1:13pm 0-30 Blood Urea Nitrogen December 10, 2014 4:44am 18.0 MG/DL N 9-20 Calcium Level December 10, 2014 4:44am 8.7 MG/DL N 8.4-10.2 Calculated Osmolality December 10, 2014 4:44am 273 MOSM/KG N 261-280 Carbon Dioxide Level December 10, 2014 4:44am 35 MEQ/L H 22-30 Chemistry Specimen Hemolysis December 10, 2014 4:44am < 15 0-25 0-25: No Hemolysis.26-70: Slight Hemolysis - can falsely elevate K and Urine Protein. 71-285: Moderate Hemolysis - can falsely elevate K, Troponin I, CA 19-9, PTH, CSF GLucose, and Urine Protein, and can falsely decrease Phenytoin. 286-999: Gross Hemolysis - can falsely elevate K, Troponin I, CA 19-9, PTH, CSF Glucose, and Urine Protine, and can falsely decrease Phenytoin. Recommend specimen recollection. Chloride Level December 10, 2014 4:44am 98 MEQ/L N 98-107 Creatinine December 10, 2014 4:44am 1.1 MG/DL N 0.8-1.5 Eosinophils # (Auto) December 10, 2014 4:44am 0.1 T/MM3 N 0-0.5 Eosinophils (%) (Auto) December 10, 2014 4:44am 1.7 % N 0-4 Ferritin December 05, 2014 3:42am 341 NG/ML N 18-464 Globulin December 10, 2014 4:44am 3.7 G/DL H 2.4-3.6 Glomerular Filtration Rate Calc December 10, 2014 4:44am 67 - Glucose Level December 10, 2014 4:44am 149 MG/DL H 75-110 Hematocrit December 10, 2014 4:44am 48.1 % N 41-53 Hemoglobin December 10, 2014 4:44am 16.1 GM/DL N 13.5-17.5 Icterus Index December 10, 2014 4:44am < 2 0-7 Immature Granulocyte # (Auto) December 10, 2014 4:44am 0.01 T/MM3 N 0.00- 0.03 Immature Granulocyte % (Auto) December 10, 2014 4:44am 0.1 % N 0.0-0.5 Lymphocytes # (Auto) December 10, 2014 4:44am 2.4 T/MM3 N 1-4.8 Lymphocytes (%) (Auto) December 10, 2014 4:44am 34.9 % N 23-45 Magnesium Level December 10, 2014 4:44am 2.0 MG/DL N 1.6-2.3 Mean Corpuscular Hemoglobin December 10, 2014 4:44am 32.3 UUG N 26-34 Mean Corpuscular Hemoglobin Concent December 10, 2014 4:44am 33.5 GM/DL N 31-37 Mean Corpuscular Volume December 10, 2014 4:44am 96.4 UM3 N 80-100 Mean Platelet Volume December 10, 2014 4:44am 10.7 UM3 N 9.4-12.4 Monocytes # (Auto) December 10, 2014 4:44am 0.7 T/MM3 N 0-0.8 Monocytes (%) (Auto) December 10, 2014 4:44am 10.2 % H 0-9.0 IR-Wij-T-Type Natriuretic Peptide December 05, 2014 3:42am 6850 PG/ML H 0- 175 Rule in cut points: <50 years old=450; 50-75 years old=900; >75 years old=1800; When utilizing ProBNP rule-in cut points, adjustment for impaired renal function is typically not required. Neutrophils # (Auto) December 10, 2014 4:44am 3.7 T/MM3 N 1.8-7.7 Neutrophils (%) (Auto) December 10, 2014 4:44am 52.7 % N 33-66 Oxygen Delivery Method (LAB) December 08, 2014 1:13pm Room air - Platelet Count December 10, 2014 4:44am 138 T/MM3 N 130-400 Potassium Level December 10, 2014 4:44am 4.8 MEQ/L N 3.6-5 Prothromb Time International Ratio December 10, 2014 4:44am 2.49 H 0.81- 1.09 THERAPUTIC RANGE=2.00-3.00 FOR ANTI-THROMBOSIS THERAPUTIC RANGE=2.50- 3.50 FOR IMPLANTED VALVE RDW Standard Deviation December 10, 2014 4:44am 45.2 FL N 36.9-50.2 Red Blood Count December 10, 2014 4:44am 4.99 M/MM3 N 4.50-5.90 Sodium Level December 10, 2014 4:44am 139 MEQ/L N 134-144 Thyroid Stimulating Hormone (TSH) December 05, 2014 3:42am 2.89 MIU/L N 0.47-4.68 Total Bilirubin December 10, 2014 4:44am 0.60 MG/DL N 0.20-1.30 Total Protein December 10, 2014 4:44am 7.1 G/DL N 6.3-8.2 Troponin I December 06, 2014 4:25am 0.074 ng/ml N 0-0.12 COMMENT ok to use blood in lab from this am. Turbidity December 10, 2014 4:44am < 20 0-20 Urinalysis Comment December 05, 2014 5:06am Microscopic not ind. - Has specimen been collected/obtained? Y Urine Bilirubin December 05, 2014 5:06am Negative - Has specimen been collected/obtained? Y Urine Blood December 05, 2014 5:06am Negative - Has specimen been collected/obtained? Y Urine Collection Type December 05, 2014 5:06am Cleancatch-midstream - Has specimen been collected/obtained? Y Urine Color December 05, 2014 5:06am Yellow - Has specimen been collected/obtained? Y Urine Glucose (UA) December 05, 2014 5:06am Negative - Has specimen been collected/obtained? Y Urine Ketones December 05, 2014 5:06am Negative - Has specimen been collected/obtained? Y Urine Leukocyte Esterase December 05, 2014 5:06am Negative - Has specimen been collected/obtained? Y Urine Nitrite December 05, 2014 5:06am Negative - Has specimen been collected/obtained? Y Urine Protein December 05, 2014 5:06am Negative - Has specimen been collected/obtained? Y Urine Specific [place] December 05, 2014 5:06am 1.025 - Has specimen been collected/obtained? Y Urine Turbidity December 05, 2014 5:06am Clear - Has specimen been collected/obtained? Y Urine Urobilinogen December 05, 2014 5:06am 0.2 EU/DL - Has specimen been collected/obtained? Y Urine pH December 05, 2014 5:06am 5.5 - Has specimen been collected/ obtained? Y Venous Blood Base Excess December 08, 2014 1:13pm 5.0 MMOL/L H -2.0-2.0 Venous Blood HCO3 December 08, 2014 1:13pm 31 MEQ/L H 22-26 Venous Blood Oxygen Saturation December 08, 2014 1:13pm 56.0 % - Venous Blood Partial Pressure CO2 December 08, 2014 1:13pm 51.9 MMHG N 40- 52 Venous Blood Partial Pressure O2 December 08, 2014 1:13pm 31 MMHG L 40-52 Venous Blood Total Carbon Dioxide December 08, 2014 1:13pm 33 MEQ/L - Venous Blood pH December 08, 2014 1:13pm 7.384 N 7.31-7.41 White Blood Count December 10, 2014 4:44am 6.9 T/MM3 N 4.5-11.0 Name: TOMY HILARIO Unit #: [id number] : 1945 Sex: M Loc / Svc: CCU DOS: 03/14/15 Signed Report #: [id number] DIAGNOSTIC IMAGING REPORT TYPE OF EXAM: CHEST, PA & LATERAL Dictated By: SEAN LANZA MD INDICATION: ITS.REASON: F/U pulm edema CHEST 2-VIEWS UPRIGHT (PA & LAT) COMPARISON: December 06, 2014 FINDINGS: Pulmonary edema has improved. Prior trace effusions have resolved. No new airspace consolidation. There is no pleural effusion or pneumothorax. The heart size and mediastinal contours are stable. IMPRESSION: Improved pulmonary edema which has essentially resolved. . Procedures No known history of procedures. Encounters Encounter Location Date/Time Discharged Inpatient [facility] 12/06/14 10:16am Recent Diagnosis Atrial fibrillation with RVR Exertional dyspnea Edema Atrial fibrillation with RVR Acute systolic heart failure Cardiomyopathy Atrial thrombus Acute bronchitis Tobacco dependence Obesity (BMI 30.0-34.9)
[2016-12-31 20:52] VITALS: Ht 180.3 cm; Wt 92.2 kg
[2016-12-31] MEDS ORDERED: NORMAL SALINE 1,000 ML IV ONE (20:52)
--- NOTE | 2016-12-31 20:58 | NUR ---
PROVIDER DR CONTRERAS IN ROOM W/ PT.
[2016-12-31] MEDS ORDERED: ONDANSETRON 4mg/2ml INJECTION IV PRN (21:00)
--- NOTE | 2016-12-31 21:04 | ERPDOC ---
Departure Disposition Decision Date: Dec 31, 2016 Disposition Decision Time: 22:38 Disposition: 01 DISCHARGED HOME, SELF-CARE Impression Impression Impression: Primary Impression: Flank pain Additional Impressions: Hematuria Increased white blood cell count Leukocytosis type: unspecified Qualified Codes: D72.829 - Elevated white blood cell count, unspecified Severity: Moderate Condition: Improved Seen By: Physician only Referrals: JESÚS HAYNES II, MD (PCP) 1 Week GABRIEL MAN MD (Family) Patient Instructions: Flank Pain (ED), Hematuria (ED) Problems/Meds/Labs Reviewed?: Yes Medications reviewed and manag: Yes Additional Instructions: We have evaluated you tonight and did not find any emergency or serious causes of your symptoms. A recently passed kidney stone would explain your symptoms, but there could be other causes. Follow up with your doctor as previously arranged. Drink lots of fluids and take naproxen if you have pain. Strain your urine to collect any stones that may pass. Follow up care ordered?: Yes Mental Status: Alert, Oriented HPI - Male General Stated Complaint: HIGH BS,DIFF URINATING,FEVER Time Seen by Provider: 20:52 Source: patient Exam Limitations: no limitations HPI - Male Initial Comments 71[facility], urgency, fever, and elevated BG. Pts urgency, frequency, and fevers started last night. Today, pts BG have been elevated; was 221 prior to leaving home. Normally runs in the 150s with metformin. Pt has no h/o UTI/prostate issues. Does have an extensive cardiac hx. Occurred At: home Onset: Gradual, Getting worse Duration: 12-24 hrs Activities at Onset: none Prior Genitourinary Problems: none Modifying Factors: WORSE WITH: urinating Associated Symptoms: fever/chills, urinary frequency, DENIES: abdominal pain, diaphoresis, dysuria, loss of bladder control, lower back pain, lumps, mass, nausea/vomiting, nocturia, polyuria, swelling, syncope Hx of Similar Symptoms: No Allergies: Coded Allergies: No Known Drug Allergies (Unverified Adverse Reaction, Unknown, 12/05/14) Past History Past Medical History Metabolic: diabetes Cardiac: A-fib, CAD, CHF Hx Echocardiogram: No Surgical History General: back Family History Family PMH: FOUND: other Vaccines Hx Influenza Vaccination: No Hx Pneumococcal Vaccination: No Hx Tetanus Diptheria: No Hx Tetanus, Diptheria, Pertuss: Yes (UNKNOWN) Social History Sexuality: female partner Review of Systems Constitutional Constitutional: fever General: frequency, urgency All other Systems All Other Systems: Reviewed and Negative Physical Exam General General Nourishment: well nourished, well developed, appears stated age, no acute distress, adult, thin General Body Habitus: well groomed Vitals and Pain Weight: Kilograms: Height (feet): 5 Height (inches): 11.00 Triage Pain Scale: RN VS reviewed by Provider: Yes Normal Exams: Head: Normocephalic w/o trauma Eyes: Pupils are PERRLA w/ EOMI, No scleral icterus, irritation ENMT: No facial trauma, nasal exudates, pharyngeal erythema Neck: Full range of motion, without adenopathy, JVD Lymphatic: No lymphadenopathy Musculoskeletal: No tenderness, or deformity noted Integumentary: No rashes, hives, or bruising noted Neurologic: Patient is alert, and oriented Psychiatric: Patient exhibits, appropriate attention Respiratory (brief) Respiratory: FOUND: clear all rojas, equal bilaterally, symmetrical, NOT FOUND : rales, wheezes Cardiovascular (brief) Cardiac: FOUND: regular rate, regular rhythm, NOT FOUND: click, gallop, murmur , pedal edema, peripheral edema, rub Capillary Refill: <2 sec Pulses: all distal extremities, equal, strong Abdomen (brief) Abdominal Brief: FOUND: bowel normo active x4, soft, NOT FOUND: distended, hepatosplenomegaly, pulsatile mass, tender Differential Diagnoses Considering: Hematuria, Prostatitis, Pyelonephritis, Renal Colic, Urinary Retention, UTI Progress Results/Orders Orders Procedure Category Date Status Time Cbc W/Auto LAB 12/31/16 Complete Diff-Reflex Manual 20:52 Cmp - Comprehensive LAB 12/31/16 Complete Metabolic 20:52 Procalcitonin LAB 12/31/16 Complete 20:52 Blood Culture SANCHEZ 12/31/16 In Process 20:52 Chest 1 View RAD 12/31/16 Taken 20:52 Lipase LAB 12/31/16 Complete 20:52 EKG EKG 12/31/16 Taken 20:52 Magnesium LAB 12/31/16 Complete 20:52 Phosphorus LAB 12/31/16 Complete 20:52 Beta-Hydroxybutyrate LAB 12/31/16 Complete Blood 20:52 Iv Lock (Ed Only) EDM 12/31/16 Transmitted 20:52 Nothing By Mouth (Ed EDM 12/31/16 Transmitted Only) 20:52 Normal Saline (Normal PHA 12/31/16 Complete Saline Iv) 20:52 Troponin I W LAB 12/31/16 Complete Hemolysis Index 20:52 Ondansetron Inj PHA 12/31/16 In Process (Zofran) 21:00 UA, LAB 12/31/16 Complete Dip&Micro(Complete) & 21:24 Ct Renal W/O Contrast CT 12/31/16 Taken Lab Results Laboratory Tests Test 12/31/16 20:56 12/31/16 21:22 12/31/16 21:24 Glucometer 194mg/dL White Blood Count 18.4T/MM3 Red Blood Count 4.47M/MM3 Hemoglobin 15.4GM/DL Hematocrit 45.2% Mean Corpuscular Volume 101.1UM3 Mean Corpuscular Hemoglobin 34.5UUG Mean Corpuscular Hemoglobin Concent 34.1GM/DL RDW Standard Deviation 44.2FL Platelet Count 124T/MM3 Mean Platelet Volume 9.6UM3 Immature Granulocyte % (Auto) % Neutrophils (%) (Auto) % Lymphocytes (%) (Auto) % Monocytes (%) (Auto) % Eosinophils (%) (Auto) % Basophils (%) (Auto) % Absolute Immature Granulocyte (auto T/MM3 Absolute Neutrophils (auto) T/MM3 Absolute Lymphocytes (auto) T/MM3 Absolute Monocytes (auto) T/MM3 Absolute Eosinophils (auto) T/MM3 Absolute Basophils (auto) T/MM3 Neutrophils % (Manual) 83.0% Lymphocytes % (Manual) 10.0% Monocytes % (Manual) 7.0% Absolute Neutrophils (Manual) 15.3T/MM3 Lymphocytes # (Manual) 1.8T/MM3 Monocytes # (Manual) 1.3T/MM3 Red Cell Morphology Comment Normal Turbidity < 20 Sodium Level 137MEQ/L Potassium Level 4.8MEQ/L Chloride Level 102MEQ/L Carbon Dioxide Level 23MEQ/L Anion Gap 12MEQ/L Blood Urea Nitrogen 15.0MG/DL Creatinine 0.9MG/DL Glomerular Filtration Rate Calc 84 BUN/Creatinine Ratio 17RATIO Glucose Level 212MG/DL Calculated Osmolality 271MOSM/KG Calcium Level 9.8MG/DL Phosphorus Level 3.3MG/DL Magnesium Level 1.7MG/DL Total Bilirubin 2.00MG/DL Icterus Index < 2 Aspartate Amino Transf (AST/SGOT) 24U/L Alanine Aminotransferase (ALT/SGPT) 23U/L Alkaline Phosphatase 74U/L Troponin I 0.017ng/ml Total Protein 7.8G/DL Albumin 4.3G/DL Globulin 3.5G/DL Albumin/Globulin Ratio 1.2RATIO Lipase 59U/L Procalcitonin 0.14NG/ML Chemistry Specimen Hemolysis < 15 B-Hydroxybutyrate 0.20MMOL/L Urine Collection Type Cleancatch-midstream Urine Color Yellow Urine Turbidity Clear Urine pH 5.0 Urine Specific [place] 1.025 Urine Protein 2+ Urine Glucose (UA) Negative Urine Ketones Negative Urine Blood 3+ Urine Nitrite Negative Urine Bilirubin 1+ Urine Urobilinogen 0.2EU/DL Urine Leukocyte Esterase Negative Urine RBC 20-30/HPF Urine WBC 1-3/HPF Urine Bacteria Trace Urine Culture Indicated Cult not indicated Medications Current ED Medications Sodium Chloride (Normal Saline IV) 1,000 ml @ 0 mls/hr Q0M ONCE IV Last administered on 12/31/16 21:24; Start 12/31/16 at 20:52; Stop 12/31/16 at 20:54; Status DC Ondansetron HCl (Zofran) 4 mg Q6H PRN IV NAUSEA &/OR VOMITING Last administered on 12/31/16 21:27; Start 12/31/16 at 21:00 Progress Progress 71yo man with WBC elevation, mild BG elevation, BP elevation, diaphoresis, and hematuria without evidence of infection DE or other emergent causes all point towards passage of kidney stone. Discussed dx, prognosis, tx, and f/u needs with pt who voiced understanding. EKG EKG : Rate: 60-100 Rhythm: atrial fibrillation [place]: normal QRS: normal Intervals: normal ST/T: normal Interpreted by: signing physician Xray Xray : Xray: CXR Portable Interpretation: Normal, Interpreted by Me CT CT : CT: Renal no contrast Interpretation: Normal, Reviewed Written Report HELLEN CONTRERAS DO Dec 31, 2016 21:04
--- NOTE | 2016-12-31 21:06 | NUR ---
XRAY XRAY IN ROOM PORTABLE CHEST.
--- OUTSIDE RECORDS SUMMARY | 2016-12-31 21:07 | XMS REPORT | Continuity of Care Document ---
Author Author [facility] Organization [facility] Address Unknown Phone Unavailable Allergies Active Description Code Type Severity Reaction Onset Reported/Identified Relationship to Patient Clinical Status Yes No Known Medication Allergies NKMA N/A N/A 01/06/2015 Medications Problems Procedures Results Test Result Range Protime (INR) - 07/21/16 10:55 INR 1.4 NA 0.8-1.2 Prothrombin Time Venous seconds Encounters ACCT No. Visit Date/Time Discharge Status Pt. Type Provider Facility Loc./Unit Complaint [id number] 10/10/2016 15:32:00 2016 23:59:00 DIS Outpatient Loki Humphreys [facility] TCPA DM AND HEART SUSIE [id number] 07/21/2016 09:36:00 2015 23:59:00 DIS Outpatient Loki Humphreys [facility] [place] hair folicle check, diabetes check [id number] 07/17/2016 08:39:00 2015 23:59:00 DIS Outpatient Loki Humphreys [facility] [place] Go over meds [id number] 07/11/2016 15:15:00 2015 23:59:00 DIS Outpatient Loki Humphreys [facility] [place] TCPA MED CHECK [id number] 06/14/2015 14:10:00 Document Registration
--- OUTSIDE RECORDS SUMMARY | 2016-12-31 21:08 | XMS REPORT | Continuity of Care Document ---
Author Author [facility] Organization [facility] Address Unknown Phone Unavailable Care Team Providers Care Solar Panel Installation Supervisor Name Role Phone JESÚS HAYNES II, MD Primary Care Physician [phone] Insurance Providers Payer Name Policy Number Subscriber Name Relationship Medicarehupolina Woody [facility] [id number] Tomy Hilario 20 Self Advance Directives Directive [...] Nutrition: Breastfeed ad rachana Discharge Activity: See [place] discharge instructions. Follow Up Appointments: Will need Neobili checked and Wt checked tomorrow morning 12/10. [address] Webb Notify Physician If: See Discharge instructions. Weight Pounds: 7 (lbs) Weight Ounces: 8.11 (oz) Dismissal Weight: 3.195 Bilirubin Level: 7.1 Plan of Care Discharge Date 12/10/14 4:10pm Disposition 01 DISCHARGED HOME, SELF-CARE Instructions/Education Provided [place] Congestive [place] [facility] [place] Pneumococcal Vaccine DI [...] F (96.8 - 99.1) Temperature (Calculated Celsius) 35.98498 degrees C (36.0 - 37.3) Pulse Rate [...] 10, 2014 4:44am 10.2 % H 0-9.0 OW-Hby-W-Type Natriuretic Peptide December 05, 2014 3:42am 6850 [...] Has specimen been collected/obtained? Y Urine Specific [place] December 05, 2014 5:06am 1.025 - Has [...] N 4.5-11.0 Name: TOMY HILARIO Unit #: [id number] : 1945 Sex: M Loc / Svc: CCU DOS: 03/14/15 Signed Report #: [id number] DIAGNOSTIC IMAGING REPORT TYPE OF EXAM: CHEST, [...] procedures. Encounters Encounter Location Date/Time Discharged Inpatient [facility] 12/06/14 10:16am Recent Diagnosis Atrial fibrillation with RVR Exertional dyspnea Edema Atrial fibrillation with RVR Acute systolic heart failure Cardiomyopathy Atrial thrombus Acute bronchitis Tobacco dependence Obesity (BMI 30.0-34.9)
[2016-12-31] MEDS ORDERED: SPIR25TA4 PO (21:09)
[2016-12-31] MEDS ORDERED: LISI10TA7 PO (21:09)
[2016-12-31] MEDS ORDERED: WARF5TAB6 PO (21:09)
[2016-12-31] MEDS ORDERED: FURO40TA5 PO (21:09)
[2016-12-31] MEDS ORDERED: DIGO125T17 PO (21:09)
[2016-12-31] MEDS ORDERED: CARV25TA2 PO (21:11)
[2016-12-31] MEDS ORDERED: METF500T4 PO (21:11)
[2016-12-31 21:30] LABS: HCT - HEMATOCRIT 45.2 % (41-53); HGB - HEMOGLOBIN 15.4 GM/DL (13.5-17.5); MEAN CORPUSCULAR HGB 34.5 UUG (26-34); MEAN CORPUSCULAR HGB CONC(MCHC 34.1 GM/DL (31-37); MEAN CORPUSCULAR VOLUME 101.1 UM3 (80-100); MEAN PLATELET VOLUME 9.6 UM3 (9.4-12.4); RED BLOOD COUNT 4.47 M/MM3 (4.50-5.90); WBC - WHITE BLOOD COUNT 18.4 T/MM3 (4.5-11.0)
[2016-12-31 21:31] LABS: BLOOD, URINE 3+ (NEGATIVE); COLOR,URINE YELLOW (YELLOW); LEUKOCYTE ESTERASE ,URINE NEGATIVE (NEGATIVE); NITRITE,URINE NEGATIVE (NEGATIVE); UROBILINOGEN,URINE 0.2 EU/DL (NORMAL)
[2016-12-31 21:39] LABS: BACTERIA,URINE TRACE (NEGATIVE); RBC,URINE 20-30 /HPF (0-3)
[2016-12-31 21:41] LABS: ALBUMIN 4.3 G/DL (3.5-5.0); ALBUMIN/GLOBULIN RATIO 1.2 RATIO (1.1-2.2); ALKALINE PHOSPHATASE 74 U/L (38-126); ALT (SGPT) 23 U/L (21-72); ANION GAP 12 MEQ/L (5-15); AST (SGOT) 24 U/L (17-59); BUN/CREATININE RATIO 17 RATIO (6-26); CALCIUM 9.8 MG/DL (8.4-10.2); CHLORIDE 102 MEQ/L (98-107); CO2 - CARBON DIOXIDE 23 MEQ/L (22-30); CREATININE 0.9 MG/DL (0.8-1.5); GLOMERULAR FILTRATION RATE 84; GLUCOSE 212 MG/DL (75-110); MAGNESIUM 1.7 MG/DL (1.6-2.3); PHOSPHORUS 3.3 MG/DL (2.5-4.5); POTASSIUM 4.8 MEQ/L (3.6-5); SODIUM 137 MEQ/L (134-144); TOTAL PROTEIN 7.8 G/DL (6.3-8.2)
[2016-12-31 21:48] LABS: LIPASE 59 U/L (23-300)
[2016-12-31 21:51] LABS: LYMPHOCYTES # (MANUAL) 1.8 T/MM3 (1-4.8); MONOCYTES # (MANUAL) 1.3 T/MM3 (0-0.8); NEUTROPHILS #(MANUAL)-ABSOLUTE 15.3 T/MM3 (1.8-7.7)
--- NOTE | 2016-12-31 21:55 | NUR ---
CT SCAN PT GONE TO CT SCAN.
--- NOTE | 2016-12-31 22:05 | NUR ---
CT SCAN PT BACK FROM CT SCAN.
[2016-12-31 22:58] VITALS: BP 127/60; PULSE 94; RESP 20; TEMP 98; O2SAT 94
--- NOTE | 2016-12-31 22:58 | NUR ---
DISCHARGE INSTRUCTIONS GIVEN FOR HEMATURIA AND FLANK PAIN. PT VERBALIZED UNDERSTANDING AND SIGNED FORM. PT LEFT ER AMBULATORY W/O ASSIST ALERT VS CHARTED CONDITION IMPROVED AND NO ACUTE DISTRESS.
--- NOTE | 2017-01-01 08:09 | DI ---
Indication: ITS.REASON: Frequency, hematuria, pain PROCEDURE: CT RENAL W/O CONTRAST: Encounter: Initial Comparison: None Technique: Axial CT images were performed through the abdomen and pelvis without intravenous contrast. Coronal and sagittal two-dimensional reformats. Automated Exposure Control and Iterative Reconstruction dose reducing techniques were utilized. Findings: The lung bases are clear. Coronary artery calcifications. The unenhanced liver, gallbladder, spleen, pancreas and adrenal glands are within normal limits. Kidneys are unremarkable. No renal or ureteral stones. Bladder is slightly thick walled but decompressed. No evidence of a bowel obstruction. Bone windows are unremarkable for age. Impression: No acute disease process seen. There is a preliminary report by [employer]. .
--- NOTE | 2017-01-01 08:10 | DI ---
Indication: ITS.REASON: Pain PROCEDURE: CHEST 1 VIEW: Encounter: Initial Comparison: None FINDINGS: The lungs are clear. There is no abnormal airspace opacity, pleural effusion or pneumothorax identified. The heart size, pulmonary vasculature and mediastinum are within normal limits. Prominent calcification at the right first costochondral cartilage area. IMPRESSION: No acute cardiopulmonary abnormality. .
== END 2016-12-31 22:58 | disposition home or self-care (01) ==
LOC: ED 20:22
DX: R35.0 Frequency of micturition (principal); R39.15 Urgency of urination; R31.9 Hematuria, unspecified; R10.9 Unspecified abdominal pain; D72.829 Elevated white blood cell count, unspecified; R50.9 Fever, unspecified; E11.65 Type 2 diabetes mellitus with hyperglycemia; Z79.84 Long term (current) use of oral hypoglycemic drugs
CPT/HCPCS: 36415; 71010; 74176; 80053; 81001; 82010; 82948; 83690; 83735; 84100; 84145; 84484; 85025; 87040; 93005; 96361; 96374; 99284; J2405; J7030